=== PATIENT | female | born 1970 | race Caucasian/White ===

== ENCOUNTER → 2017-01-09 | Outpatient (CLI) | payer BC ==
--- NOTE | 2017-01-17 16:49 | MY ---
EXAMINATION: Bilateral digital mammography utilizing CAD. HISTORY: Screening exam. Comparison is made to previous studies dated 05/18/2014. FINDINGS: Bilateral heterogeneously dense breast tissue. Bilateral subglandular saline implants are noted. No suspicious calcifications, masses or architectural distortions. No pathologic appearing lymph nodes, no abnormal skin thickening or nipple inversion. CAD highlighted regions appear normal at this time. IMPRESSION: BI-RADS category I - negative mammogram. Continued screening according to ACR-ACS guidelines ron segundo. THE FALSE-NEGATIVE RATE OF MAMMOGRAM IS APPROXIMATELY 10%. MANAGEMENT OF A PALPABLE ABNORMALITY MUST BE BASED UPON CLINICAL GROUNDS. SENSITIVITY FOR DETECTION OF ABNORMALITIES IN DENSE BREASTS IS LOW. NOTE: A letter will be sent to the patient regarding findings. [facility] -- HERRERA Gonzalez [phone] - FAX [phone]
== END | disposition home or self-care (01) ==
LOC: MW.MAM 13:24
PROVIDERS: ATTEND Obstetrics & Gynecology
DX: Z12.31 Encounter for screening mammogram for malignant neoplasm of breast (principal)
CPT/HCPCS: G0202; G0202-26

== ENCOUNTER 2020-03-28 15:02 | Emergency (ER) | payer BC ==
[2020-03-28] MEDS ORDERED: Sodium Chloride 0.9% 10 ML Syringe FLUSH PRN (15:13)
[2020-03-28] MEDS ORDERED: Sodium Chloride 0.9% 2.5 ML Syringe FLUSH PRN (15:13)
[2020-03-28 15:54] LABS: BLOOD UREA NITROGEN,BUN 16 mg/dL (7.0-18.0); CARBON DIOXIDE,CO2 25.1 mmol/L (21.0-32.0); CHLORIDE,CL 99 mmol/L (98-107); GLUCOSE RANDOM 125 mg/dL (74-106); POTASSIUM,K 3.4 mmol/L (3.5-5.1); SODIUM,NA 135 mmol/L (136-145)
--- NOTE | 2020-03-28 16:05 | CR ---
Chest: 2 views of the chest were obtained. Comparison: No previous chest imaging. Heart size and mediastinum are normal. Lungs are clear with no acute parenchymal change. Bony structures are unremarkable. Impression: 1. Nothing acute is seen on 2 view chest x-ray. Diagnostic code #1 This report was dictated in MDT
--- NOTE | 2020-03-28 16:54 | EDM.PDOC ---
ED HPI GENERAL MEDICAL PROBLEM - General Chief Complaint: Chest Pain Stated Complaint: CHEST PAIN Time Seen by Provider: 03/28/20 15:13 Source of Information: Reports: Patient History Limitations: Reports: No Limitations - History of Present Illness INITIAL COMMENTS - FREE TEXT/NARRATIVE: 50-year-old female past medical history of hypertension, tobacco use presenting with chest pain. 4-day history of intermittent pain to the substernal area of the chest and the left anterior chest wall. No history of prior pain like this. Nothing makes it better or worse. Described as "sharp". Onset was gradual. No self treatment prior to arrival. Chest Pain Score (Numeric/FACES): 4 - Related Data Allergies Allergy/AdvReac Type Severity Reaction Status Date / Time morphine Allergy Rash Verified 03/28/20 15:09 Home Meds: Home Meds . [Unable to Verify Home Med List] 03/28/20 [History] Past Medical History Cardiovascular History: Reports: Hypertension Endocrine/Metabolic History: Reports: Hypothyroidism - Infectious Disease History Infectious Disease History: Reports: Chicken Pox - Past Surgical History GI Surgical History: Reports: Cholecystectomy Social & Family History - Family History Family Medical History: Noncontributory - Tobacco Use Smoking Status *Q: Current Every Day Smoker Tobacco Use Within Last Twelve Months: Cigarettes - Recreational Drug Use Recreational Drug Use: No ED ROS GENERAL - Review of Systems Review Of Systems: See Below Constitutional: Denies: Fever HEENT: Reports: No Symptoms Respiratory: Denies: Shortness of Breath, Cough, Hemoptysis Cardiovascular: Reports: Chest Pain Endocrine: Reports: No Symptoms GI/Abdominal: Denies: Abdominal Pain, Nausea, Vomiting : Denies: Flank Pain Musculoskeletal: Denies: Shoulder Pain, Arm Pain, Back Pain Skin: Denies: Rash Neurological: Denies: Headache, Numbness ED EXAM, GENERAL - Physical Exam Exam: See Below Free Text/Narrative:: Vital signs reviewed. Nursing notes reviewed. Constitutional: Awake, alert, non-distressed. Head: Normocephalic, atraumatic. Eyes: EOMI, conjunctiva normal, no discharge, no scleral icterus. Ears, Nose, Throat: External ears and nose normal, moist oral mucosa. Cardiovascular: 2+ radial pulse, capillary refill less than 2 seconds. RRR no MRG. No lower extremity edema. Pulmonary: normal work of breathing, no accessory muscle use. CTA BL Abdomen/GI: Soft, nontender, nondistended, no guarding or rigidity, no masses. Musculoskeletal: No deformities. Integumentary: Appropriate color for ethnicity, warm, dry, no pallor or jaundice, no rash. Neurologic: Alert, answering questions appropriately, normal speech, no facial droop, moving all extremities well. Psychiatric: Appropriate mood and affect, normal thought process. EKG INTERPRETATION EKG Interpretation Comments: 12-Lead ECG Interpretation Acquired: 3:05 PM Rhythm: Sinus rhythm Rate: 97 bpm Lewis: Normal Intervals: Normal Ectopy: None Ischemic Changes: None apparent RV Strain: No obvious RV strain pattern. ST Segments/T-Waves: No notable changes Interpretation: Unremarkable Course - Vital Signs Text/Narrative:: Patient hemodynamically stable, afebrile, well-appearing, looks nontoxic. Differential diagnosis includes but is not limited to: ACS, pulmonary embolism, aortic dissection, acute systolic heart failure, pneumonia, pneumothorax, pericardial effusion, pleural effusion, pericarditis, endocarditis, esophageal rupture, GERD, drug-induced chest pain, chest wall pain, and many others. I considered a multitude of differential diagnoses for the patient's chest pain, including: Negative troponin with 4 days of chest pain, nonischemic EKG. Heart score of 2, which is low risk. Low suspicion for acute coronary syndrome given these facts. Moderate risk by Wells PE score but not hypoxic or tachycardic, negative d-dimer. Pain does not radiate to the back and the patient is not significantly hypertensive, low suspicion for thoracic aortic dissection. No clinical evidence of congestive heart failure. Chest x-rays show no evidence of pneumothorax or infiltrate or an effusion. No cardiac murmur on auscultation. No fever or history of infectious symptoms. No history of recent vomiting. Given negative work-up and well appearance, stable discharge home with outpatient primary care follow-up. Strict emergency department return precautions were provided, patient indicated understanding. All questions were answered prior to departure. Discharged in good condition. HEART Score for Major Cardiac Events RESULT SUMMARY: 2 points Low Score (0-3 points) Risk of MACE of 0.9-1.7%. INPUTS: History > 0 = Slightly suspicious EKG > 0 = Normal Age > 1 = 45-64 Risk factors > 1 = 1-2 risk factors Initial troponin > 0 = ?normal limit Wells' Criteria for Pulmonary Embolism RESULT SUMMARY: 3.0 points Moderate risk group: 16.2% chance of PE in an ED population. Another study assigned scores ? 4 as PE Unlikely and had a 3% incidence of PE. INPUTS: Clinical signs and symptoms of DVT > 0 = No PE is #1 diagnosis OR equally likely > 3 = Yes Heart rate > 100 > 0 = No Immobilization at least 3 days OR surgery in the previous 4 weeks > 0 = No Previous, objectively diagnosed PE or DVT > 0 = No Hemoptysis > 0 = No Malignancy w/ treatment within 6 months or palliative > 0 = No Last Recorded V/S: Last Vital Signs Temp 36.6 C 03/28/20 15:09 Pulse 92 03/28/20 16:46 Resp 18 03/28/20 16:46 BP 107/75 03/28/20 16:46 Pulse Ox 96 03/28/20 16:46 - Orders/Labs/Meds Orders: Active Orders 24 hr Category Date Time Status Cardiac Monitoring [RC] . DIRECTED Care 03/28/20 15:13 Active Pulse Oximetry [RC] ASDIRECTED Care 03/28/20 15:13 Active Sodium Chloride 0.9% [Saline Flush] Med 03/28/20 15:13 Active 10 ml FLUSH ASDIRECTED PRN Sodium Chloride 0.9% [Saline Flush] Med 03/28/20 15:13 Active 2.5 ml FLUSH ASDIRECTED PRN Saline Lock Insert [OM.PC] Stat Oth 03/28/20 15:13 Ordered Medication Orders Sodium Chloride (Saline Flush) 2.5 ml FLUSH ASDIRECTED PRN PRN Reason: Keep Vein Open Sodium Chloride (Saline Flush) 10 ml FLUSH ASDIRECTED PRN PRN Reason: Keep Vein Open Labs: Laboratory Tests 03/28/20 03/28/20 03/28/20 Range/Units 15:13 15:13 15:13 WBC 14.40 H (4.0-11.0) K/uL RBC 5.02 (4.30-5.90) M/uL Hgb 15.8 (12.0-16.0) g/dL Hct 47.0 H (36.0-46.0) % MCV 93.6 (80.0-98.0) fL MCH 31.5 (27.0-32.0) pg MCHC 33.6 (31.0-37.0) g/dL RDW Std Deviation 49.6 (28.0-62.0) fl RDW Coeff of Stan 15 (11.0-15.0) % Plt Count 354 (150-400) K/uL MPV 10.40 (7.40-12.00) fL Neut % (Auto) 60.6 (48.0-80.0) % Lymph % (Auto) 30.8 (16.0-40.0) % Howell % (Auto) 6.9 (0.0-15.0) % Eos % (Auto) 1.1 (0.0-7.0) % Baso % (Auto) 0.6 (0.0-1.5) % Neut # (Auto) 8.7 H (1.4-5.7) K/uL Lymph # (Auto) 4.4 H (0.6-2.4) K/uL Howell # (Auto) 1.0 H (0.0-0.8) K/uL Eos # (Auto) 0.2 (0.0-0.7) K/uL Baso # (Auto) 0.1 (0.0-0.1) K/uL Nucleated RBC % 0.0 /100WBC Nucleated RBCs # 0 K/uL D-Dimer, Quantitative (0.0-0.50) mg/L FEU Sodium 135 L (136-145) mmol/L Potassium 3.4 L (3.5-5.1) mmol/L Chloride 99 (98-107) mmol/L Carbon Dioxide 25.1 (21.0-32.0) mmol/L BUN 16 (7.0-18.0) mg/dL Creatinine 1.1 H (0.6-1.0) mg/dL Est Cr Clr Drug Dosing 56.64 mL/min Estimated GFR (MDRD) 52.4 ml/min Glucose 125 H (74-106) mg/dL Calcium 9.0 (8.5-10.1) mg/dL Total Bilirubin 0.5 (0.2-1.0) mg/dL AST 14 L (15-37) IU/L ALT 41 (14-63) IU/L Alkaline Phosphatase 114 (46-116) U/L Troponin I < 0.050 (0.000-0.056) ng/mL Total Protein 8.4 H (6.4-8.2) g/dL Albumin 4.0 (3.4-5.0) g/dL Globulin 4.4 H (2.6-4.0) g/dL Albumin/Globulin Ratio 0.9 (0.9-1.6) HCG, Qual NEGATIVE (NEG) 03/28/20 Range/Units 15:13 WBC (4.0-11.0) K/uL RBC (4.30-5.90) M/uL Hgb (12.0-16.0) g/dL Hct (36.0-46.0) % MCV (80.0-98.0) fL MCH (27.0-32.0) pg MCHC (31.0-37.0) g/dL RDW Std Deviation (28.0-62.0) fl RDW Coeff of Stan (11.0-15.0) % Plt Count (150-400) K/uL MPV (7.40-12.00) fL Neut % (Auto) (48.0-80.0) % Lymph % (Auto) (16.0-40.0) % Howell % (Auto) (0.0-15.0) % Eos % (Auto) (0.0-7.0) % Baso % (Auto) (0.0-1.5) % Neut # (Auto) (1.4-5.7) K/uL Lymph # (Auto) (0.6-2.4) K/uL Howell # (Auto) (0.0-0.8) K/uL Eos # (Auto) (0.0-0.7) K/uL Baso # (Auto) (0.0-0.1) K/uL Nucleated RBC % /100WBC Nucleated RBCs # K/uL D-Dimer, Quantitative 0.28 (0.0-0.50) mg/L FEU Sodium (136-145) mmol/L Potassium (3.5-5.1) mmol/L Chloride (98-107) mmol/L Carbon Dioxide (21.0-32.0) mmol/L BUN (7.0-18.0) mg/dL Creatinine (0.6-1.0) mg/dL Est Cr Clr Drug Dosing mL/min Estimated GFR (MDRD) ml/min Glucose (74-106) mg/dL Calcium (8.5-10.1) mg/dL Total Bilirubin (0.2-1.0) mg/dL AST (15-37) IU/L ALT (14-63) IU/L Alkaline Phosphatase (46-116) U/L Troponin I (0.000-0.056) ng/mL Total Protein (6.4-8.2) g/dL Albumin (3.4-5.0) g/dL Globulin (2.6-4.0) g/dL Albumin/Globulin Ratio (0.9-1.6) HCG, Qual (NEG) Meds: Medications Generic Name Dose Route Start Last Admin Trade Name Freq PRN Reason Stop Dose Admin Sodium Chloride 2.5 ml 03/28/20 15:13 Saline Flush FLUSH ASDIRECTED PRN Keep Vein Open Sodium Chloride 10 ml 03/28/20 15:13 Saline Flush FLUSH ASDIRECTED PRN Keep Vein Open Departure - Departure Time of Disposition: 16:52 Disposition: Home, Self-Care 01 Condition: Good Clinical Impression: Atypical chest pain Instructions: Nonspecific Chest Pain, Adult Referrals: Cody Dang MD [Physician] - 1 Week (For follow-up of symptoms.) Forms: ED Department Discharge Additional Instructions: Thank you for choosing the [facility] emergency department in [place] for your medical needs today. It was a pleasure caring for you. You were seen in the emergency department for chest pain. At this point, your blood work, EKG, and x-rays look reassuring. There is no evidence of a blood clot in your lungs or heart attack at this point. I encourage you to follow-up with your primary doctor the next few days for reevaluation. They may refer you to a public health social worker at that point. Continue taking your regularly prescribed medications. You can take [id number] Tylenol as needed for pain. If your chest pain gets worse or if you have trouble breathing, you should come back to the ER immediately. Please return the emergency department immediately if your symptoms worsen or if you feel worse. The following information is given to patients seen in the emergency department who are being discharged. This information is to outline your options for follow-up care. We provide all patients seen in our emergency department with a follow-up referral. The need for follow-up, as well as the timing and circumstances, are variable depending upon the specifics of your emergency department visit. If you don't have a primary care physician on staff, we will provide you with a referral. We always advise you to contact your personal physician following an emergency department visit to inform them of the circumstance of the visit and for follow-up with them and/or the need for any referrals to a consulting specialist. The emergency department will also refer you to a specialist when appropriate. This referral assures that you have the opportunity for follow-up care with a specialist. All of these measure are taken in an effort to provide you with optimal care, which includes your follow-up. Under all circumstances we always encourage you to contact your private physician who remains a resource for coordinating your care. When calling for follow-up care, please make the office aware that this follow-up is from your recent emergency room visit. If for any reason you are refused follow-up, please contact the [facility] Emergency Department at and asked to speak to the emergency department idnorah dubois nurse. If you do not have a primary care physician that is caring for you, you can contact these clinics below to set up an appointment to establish care: [facility] [address] [place] [id number] [facility] [address] [place] [id number] Sepsis Event Note (ED) - Evaluation Sepsis Screening Result: No Definite Risk - Focused Exam Vital Signs: Vital Signs Temp Pulse Resp BP Pulse Ox 03/28/20 16:46 92 18 107/75 96 03/28/20 15:09 36.6 C 99 20 121/89 93 L - My Orders Last 24 Hours: My Active Orders 03/28/20 15:13 Cardiac Monitoring [RC] . DIRECTED Pulse Oximetry [RC] ASDIRECTED Sodium Chloride 0.9% [Saline Flush] 10 ml FLUSH ASDIRECTED PRN Sodium Chloride 0.9% [Saline Flush] 2.5 ml FLUSH ASDIRECTED PRN Saline Lock Insert [OM.PC] Stat - Assessment/Plan Last 24 Hours: My Active Orders 03/28/20 15:13 Cardiac Monitoring [RC] . DIRECTED Pulse Oximetry [RC] ASDIRECTED Sodium Chloride 0.9% [Saline Flush] 10 ml FLUSH ASDIRECTED PRN Sodium Chloride 0.9% [Saline Flush] 2.5 ml FLUSH ASDIRECTED PRN Saline Lock Insert [OM.PC] Stat
== END 2020-03-28 17:05 | disposition home or self-care (01) ==
LOC: MW.ED 15:02
DX: R07.89 Other chest pain (principal); I10 Essential (primary) hypertension; Z88.5 Allergy status to narcotic agent; F17.210 Nicotine dependence, cigarettes, uncomplicated
CPT/HCPCS: 36415; 71046; 71046-26; 80053; 84484; 84703; 85025; 85379; 93005; 99283; 99285-25

== ENCOUNTER 2020-06-28 14:35 | Day surgery (SDC) | payer BC ==
[2020-06-28] MEDS ORDERED: Ertapenem 1 GM in Sodium Chloride 0.9% 50 ML IV ONE ×2 (15:36→16:30)
[2020-06-28] MEDS: Sodium Chloride 0.9% 1,000 ML IV SCH (16:29)
[2020-06-28] MEDS ORDERED: Bupivacaine 0.5% 30 ML SDV ONE (16:40)
[2020-06-28] MEDS ORDERED: Midazolam 1 MG/ML 2 ML SDV ONE (17:58)
[2020-06-28] MEDS ORDERED: Propofol 200 MG/20 ML SDV ONE (17:58)
[2020-06-28] MEDS ORDERED: fentaNYL 250 MCG/5 ML SDV ONE (17:58)
[2020-06-28] MEDS ORDERED: Ondansetron 4 MG/2 ML SDV ONE (17:59)
[2020-06-28] MEDS ORDERED: Ketorolac 30 MG/ML SDV ONE (17:59)
[2020-06-28] MEDS ORDERED: Rocuronium Bromide 50 MG/5 ML Syringe ONE (17:59)
[2020-06-28] MEDS ORDERED: Lidocaine 2% 5 ML SDV ONE (17:59)
[2020-06-28] MEDS ORDERED: Glycopyrrolate 0.2 MG/ML SDV ONE (17:59)
[2020-06-28] MEDS ORDERED: fentaNYL 100 MCG/2 ML SDV IVPUSH PRN (18:09)
[2020-06-28] MEDS ORDERED: Acetaminophen 1,000 MG in Premix Bag 1 BAG IV PRN (18:09)
--- NOTE | 2020-06-28 18:54 | PCM.PREANE ---
Preanesthetic Assessment - Anesthesia/Transfusion/Family Hx Anesthesia History: Prior Anesthesia Without Reaction Family History of Anesthesia Reaction: No - Review of Systems Cardiovascular: Orthopnea - Physical Assessment NPO Status Date: 06/28/20 NPO Status Time: 14:00 Vital Signs: Last Vital Signs Temp 36.2 C 06/28/20 14:47 Pulse 89 06/28/20 17:18 Resp 16 06/28/20 16:50 BP 113/74 06/28/20 17:18 Pulse Ox 97 06/28/20 17:18 Height: 1.68 m Weight: 88.904 kg ASA Class: 2E - Lab Values: Laboratory Last Values SARS-CoV-2 RNA (SIVAKUMAR) NEGATIVE (NEGATIVE) 06/28/20 15:25 - Allergies Allergies/Adverse Reactions: Allergies Allergy/AdvReac Type Severity Reaction Status Date / Time morphine Allergy Rash Verified 06/28/20 14:49 PreAnesthesia Questionnaire Cardiovascular History: Reports: Hypertension Endocrine/Metabolic History: Reports: Diabetes, Type II, Hypothyroidism - Infectious Disease History Infectious Disease History: Reports: Chicken Pox, Measles - Past Surgical History GI Surgical History: Reports: Cholecystectomy - SUBSTANCE USE Tobacco Use Status *Q: Current Every Day Tobacco User Tobacco Use Within Last Twelve Months: Cigarettes Recreational Drug Use History: No - HOME MEDS Home Medications: Home Meds Non-Formulary Medication [NF Drug] 0 each PO WEEKLY 03/28/20 [History] Cetirizine [ZyrTEC] 10 mg PO DAILY 06/28/20 [History] Levothyroxine [Synthroid] 100 mcg PO DAILY 06/28/20 [History] Triamterene/Hydrochlorothiazid [Triamterene-HCTZ 75-50 MG] 1 tab PO DAILY 06/28/20 [History] lisinopriL [Lisinopril] 20 mg PO DAILY 06/28/20 [History] - CURRENT (IN HOUSE) MEDS Current Meds: Current Medications Fentanyl (Sublimaze) 50 mcg IVPUSH Q5M PRN PRN Reason: Pain Sodium Chloride (Normal Saline) 1,000 mls @ 125 mls/hr IV ASDIRECTED IAN Last Admin: 06/28/20 16:29 Dose: 125 mls/hr Documented by: Acetaminophen 1,000 mg/ Premix 100 mls @ 400 mls/hr IV Q6H PRN PRN Reason: Pain Discontinued Medications Bupivacaine HCl (Marcaine 0.5%) Confirm Administered Dose 30 ml .ROUTE .STK-MED ONE Stop: 06/28/20 16:41 Fentanyl (Sublimaze) Confirm Administered Dose 250 mcg .ROUTE .STK-MED ONE Stop: 06/28/20 17:59 Glycopyrrolate (Robinul) Confirm Administered Dose 0.8 mg .ROUTE .STK-MED ONE Stop: 06/28/20 18:00 Ertapenem 1 gm/ Sodium (Chloride) 50 mls @ 100 mls/hr IV ONETIME ONE Stop: 06/28/20 16:59 Last Admin: 06/28/20 16:37 Dose: 100 mls/hr Documented by: Ketorolac Tromethamine (Toradol) Confirm Administered Dose 30 mg .ROUTE .STK-MED ONE Stop: 06/28/20 18:00 Lidocaine (Xylocaine-Mpf 2%) Confirm Administered Dose 5 ml .ROUTE .STK-MED ONE Stop: 06/28/20 18:00 Midazolam HCl (Versed 1 Mg/Ml) Confirm Administered Dose 2 mg .ROUTE .STK-MED ONE Stop: 06/28/20 17:59 Ondansetron HCl (Zofran) Confirm Administered Dose 4 mg .ROUTE .STK-MED ONE Stop: 06/28/20 18:00 Propofol (Diprivan 20 Ml) Confirm Administered Dose 200 mg .ROUTE .STK-MED ONE Stop: 06/28/20 17:59 Rocuronium [place] (Rocuronium Norfolk) Confirm Administered Dose 50 mg .ROUTE .STK-MED ONE Stop: 06/28/20 18:00
[2020-06-28] MEDS ORDERED: Octyl 2-Cyanoacrylate 1 Tube ONE (19:26)
[2020-06-28] MEDS ORDERED: HYDROmorphone 2 MG/ML Syringe IVPUSH PRN (19:37)
[2020-06-28] MEDS ORDERED: Ondansetron 4 MG/2 ML SDV IVPUSH PRN (19:37)
--- NOTE | 2020-06-28 19:37 | PCM.OPNOTE ---
- General Post-Op/Procedure Note Date of Surgery/Procedure: 06/28/20 Operative Procedure(s): Laparoscopic appendectomy Findings: acute appendicitis. dictation #[id number] Pre Op Diagnosis: acute appendicitis Post-Op Diagnosis: acute appendicitis Anesthesia Technique: General ET Tube Primary Surgeon: Monty Gregg Pathology: appendix EBL in mLs: 5 Complications: None Condition: Stable
--- NOTE | 2020-06-28 20:29 | PCM48HPAN ---
Post Anesthesia Note - EVALUATION WITHIN 48HRS OF ANESTHETIC Vital Signs in Normal Range: Yes Patient Participated in Evaluation: Yes Respiratory Function Stable: Yes Airway Patent: Yes Cardiovascular Function Stable: Yes Hydration Status Stable: Yes Pain Control Satisfactory: Yes Nausea and Vomiting Control Satisfactory: Yes Mental Status Recovered: Yes Vital Signs: Last Vital Signs Temp 37.0 C 06/28/20 19:42 Pulse 81 06/28/20 20:14 Resp 14 06/28/20 20:14 BP 124/86 06/28/20 20:14 Pulse Ox 96 06/28/20 20:17
[2020-06-28] MEDS: Acetaminophen/HYDROcodone 325-5 MG Tab PO PRN (22:29)
[2020-06-29] MEDS: Sodium Chloride 0.9% 1,000 ML IV SCH ×2 (03:54→12:53)
[2020-06-29] MEDS: Acetaminophen/HYDROcodone 325-5 MG Tab PO PRN (04:03)
[2020-06-29] MEDS ORDERED: Sodium Chloride 0.9% 1,000 ML IV ONE (06:20)
[2020-06-29] MEDS ORDERED: Levothyroxine 100 MCG Tab PO SCH (07:00)
--- NOTE | 2020-06-29 07:05 | CONS ---
DATE OF CONSULTATION: 06/28/2020 DATE OF : 1970 PRIMARY CARE PHYSICIAN: Cody Dang M.D. CONSULTING PHYSICIAN: Dr. Cody Dang. HISTORY OF PRESENT ILLNESS: The patient is a pleasant 50-year-old female who says about 6 weeks ago, she had some abdominal pain that radiated down to the right lower quadrant. She was going on vacation so she went on vacation. She said the pain went away after a day or so. However, the pain came back now 6 weeks later. She said it started yesterday around her umbilicus and then radiated down to the right lower quadrant. The patient said she thought maybe it was constipation so she took some magnesium citrate and and had a lot of bowel movements, but the pain remained. She also had some subjective low-grade fevers at home and she went to see her primary care provider. The labs showed an elevated white cell count of 15.[address] scan which showed likely acute appendicitis. She came to the ER so that she could get further treatment for her acute appendicitis. PAST MEDICAL PROBLEMS: Significant for: 1. Hypertension. 2. Mik. 3. Seasonal allergies. CURRENT HOME MEDICATIONS: 1. Lisinopril 20 mg p.o. daily. 2. Triamterene/hydrochlorothiazide 75/50 mg tablet daily. 3. Synthroid 100 mcg p.o. daily. 4. Zyrtec 10 mg p.o. daily. ALLERGIES: Morphine causes a rash. PAST SURGICAL HISTORY: 1. Cholecystectomy. 2. Tummy tuck. 3. . 4. Breast augmentation. FAMILY HISTORY: 1. Mother with heart stents and diabetes. 2. Breast cancer runs in the family. SOCIAL HISTORY: The patient does smoke a pack of cigarettes per day. She denies illicit drug use. She does drink alcohol socially. REVIEW OF SYSTEMS: A complete 10+ review of systems was done and was negative except for the HPI. GASTROINTESTINAL: The patient says she often has issues with constipation. The patient also says she has had some nausea, but no emesis. PHYSICAL EXAMINATION: VITAL SIGNS: Temperature is 97.2, pulse is 96, blood pressure is 120/76, saturating 95% on room air. HEENT: Head is normocephalic, atraumatic. LUNGS: Clear to auscultation bilaterally. No rhonchi or wheezing heard. HEART: Regular rate and rhythm. No murmur appreciated. ABDOMEN: Soft, nondistended. Does have well healed incisions from previous surgeries. She is tender in the right lower quadrant at McBurney's point. No rebound tenderness. EXTREMITIES: No edema. NEUROLOGICAL: Grossly no motor or neurologic deficit noted. LABORATORY DATA: White cell count is 15.84, hemoglobin is 15.5, platelet count is 344. Sodium 137, potassium 3.5, chloride 100, bicarb 26.5, BUN is 15, creatinine 0.9, glucose is 106. test is negative. COVID test is negative. IMAGING: I did look at the imaging report and looked at the CT scan myself. It does show inflammation around the appendix. The appendix also appears to be dilated. ASSESSMENT AND PLAN: This is a pleasant 50-year-old female with most likely acute appendicitis. I did go over with the patient on what appendix was. I went over risks, goals, alternatives to laparoscopic appendectomy. Risks include, but not limited to bleeding, abscess formation, infection, hernia formation, need to convert to open, injury to nearby structures, failure of the staple line, or this could be something other than appendicitis. The patient understands and wants to proceed with the surgery. She will be given antibiotics and taken to the OR once one is available. I answered all the patient's questions. She wishes to be full code for procedure. AMIRA FERREIRA /[id number] NIKOLAI
[2020-06-29 07:27] LABS: BLOOD UREA NITROGEN,BUN 12 mg/dL (7.0-18.0); CARBON DIOXIDE,CO2 24.9 mmol/L (21.0-32.0); CHLORIDE,CL 100 mmol/L (98-107); GLUCOSE RANDOM 92 mg/dL (74-106); POTASSIUM,K 3.2 mmol/L (3.5-5.1); SODIUM,NA 135 mmol/L (136-145)
--- NOTE | 2020-06-29 07:40 | OR ---
SURGEON: NENO MENDIOLA MD DATE OF PROCEDURE: 06/28/2020 PREOPERATIVE DIAGNOSIS: Acute appendicitis. POSTOPERATIVE DIAGNOSIS: Acute appendicitis. PROCEDURE PERFORMED: Laparoscopic appendectomy. PRIMARY SURGEON: Neno Mendiola MD. ANESTHESIA: General. ESTIMATED BLOOD LOSS: 5 mL. FINDINGS: Acute appendicitis. COMPLICATIONS: None. REASON FOR PROCEDURE: The patient is a pleasant 50-year-old female. Six weeks ago, she had some right lower quadrant pain that went away. However, now it came back. She was found have an elevated white cell count and a CT scan suggestive of acute appendicitis. I went over with the patient risks, goals, and alternatives to the procedure. Risks include, but not limited to, bleeding, failure of staple line, abscess formation, infection, hernia formation, injury to nearby structures such as bowel or ureter, need to convert to open, and that this could be something other than appendicitis. The patient understands and wished to proceed. PROCEDURE IN DETAIL: The patient was brought to the OR. She was prepped and draped in the usual sterile fashion. SCDs were placed. Burnette catheter was place. The patient received antibiotics. After a time-out was performed, an infraumbilical incision was made. This was carried down to the fascia. The fascia was grasped with a Rachel and slightly elevated, and a Veress needle was placed. Position was confirmed with a syringe drawbacks with no succus or blood and a positive drop test. Now, insufflation was began, and a pneumoperitoneum was established. After the pneumoperitoneum was established, now a 5 mm trocar was placed with a 5 mm camera and placed into the abdominal cavity. The abdomen was inspected. No entry wound was seen. Now, another 5 mm trocar was placed in the in the suprapubic area, and a 12 mm trocar was placed in the left lower abdomen. The patient was placed in a head- down position, and airplaned toward ar. The appendix was identified. The appendix was dilated, did not appear to have any gross perforation, but did have a little bit of exudate around it. The appendix was slightly adhered to the abdominal wall. This was carefully peeled away and. Now, a small window was made in the mesoappendix at the base of the appendix. Now, a blue load stapler was used to transect the appendix at the base of its junction with the cecum. Now, the mesoappendix was taken with Harmonic Scalpel. The appendix was removed into the EndoCatch bag. Now, the operative site was inspected. There was good hemostasis. The staple line was intact. The mesoappendix had good hemostasis. I did some light irrigation and suctioning of the operative field. The area looked good. Now, the 12 mm trocar was removed, and it was closed using a cone device and 0 Vicryl stitch. Now, the pneumoperitoneum was released, and the two 5 mm trocars were removed. All the trocar sites were now injected with Exparel and closed with 4-0 Monocryl and Dermabond. The patient was transferred to recovery room in stable condition. Sponge and needle count were correct. AMIRA / HANNA /[id number]
--- NOTE | 2020-06-29 08:41 | PCM48HPAN ---
Post Anesthesia Note - EVALUATION WITHIN 48HRS OF ANESTHETIC Vital Signs in Normal Range: Yes Patient Participated in Evaluation: Yes Respiratory Function Stable: No (Low saturations spo2 91%) Airway Patent: Yes Cardiovascular Function Stable: No (hypotension) Vital Signs: Last Vital Signs Temp 36.4 C 06/29/20 07:17 Pulse 83 06/29/20 07:17 Resp 14 06/29/20 07:17 BP 87/54 L 06/29/20 07:17 Pulse Ox 91 L 06/29/20 07:17
[2020-06-29] MEDS ORDERED: Lisinopril 10 MG Tab PO SCH (09:00)
[2020-06-29] MEDS: traMADol 50 MG Tab PO PRN ×2 (09:23→13:51)
[2020-06-29] MEDS ORDERED: Lactated Ringers 1,000 ML IV ONE (10:16)
[2020-06-29] MEDS ORDERED: Piperacillin/Tazobactam 3.375 GM in Sodium Chloride 0.9% 50 ML IV SCH (10:30)
--- NOTE | 2020-06-29 10:30 | PCM48HPAN ---
Post Anesthesia Note - EVALUATION WITHIN 48HRS OF ANESTHETIC Vital Signs in Normal Range: Yes Patient Participated in Evaluation: Yes Respiratory Function Stable: Yes Airway Patent: Yes Cardiovascular Function Stable: Yes Hydration Status Stable: Yes Pain Control Satisfactory: Yes Nausea and Vomiting Control Satisfactory: Yes Mental Status Recovered: Yes Vital Signs: Last Vital Signs Temp 36.4 C 06/29/20 07:17 Pulse 76 06/29/20 08:51 Resp 14 06/29/20 07:17 BP 89/64 L 06/29/20 08:51 Pulse Ox 91 L 06/29/20 07:17
--- NOTE | 2020-06-29 10:46 | PCM.POSTAN ---
POST ANESTHESIA ASSESSMENT - MENTAL STATUS Mental Status: Alert - VITAL SIGNS Vital Signs: Last Vital Signs Temp 36.4 C 06/29/20 07:17 Pulse 76 06/29/20 08:51 Resp 14 06/29/20 07:17 BP 89/64 L 06/29/20 08:51 Pulse Ox 91 L 06/29/20 07:17 - RESPIRATORY Respiratory Status: Respiratory Rate WNL - GASTROINTESTINAL GI Status: No Symptoms - POST OP HYDRATION Hydration Status: Adequate & Stable
[2020-06-29] MEDS ORDERED: Nicotine 14 MG/24 Hr Patch TRDERM SCH (11:15)
[2020-06-29] MEDS ORDERED: Potassium Chloride 20 MEQ Tab.ER PO ONE (12:07)
--- NOTE | 2020-06-29 13:20 | PCM.CONS ---
H&P History of Present Illness - General Date of Service: 06/29/20 Admit Problem/Dx: acute appendicitis - History of Present Illness Initial Comments - Free Text/Narative: Patient is a 50 y/o F with PMH of HTN., Mik thyroiditis, hypothyroidism seasonal allergies who was admitted for acute appendictis. Patient states she developed pain in her right lower abdomen 6 weeks back which later resolved on its own untill yesterday when the pain recurred again, this time it was more severe, she thought she was constipated so took some laxatives, which made her pass stools but her pain didnt imprve, she also developed fever at home. Her pcp ordered lab work and CT scan A/P. Lab work was significant for leucocytosis and Imaging showed appendicitis. Patient was sent to ER and underwent appendectomy on 06/28. Post op, patient was hypotensive so she was admitted for post op observation. I was consulted for hypotension. Patient was resting comfortably, no acute abdominal pain, no fever. Denied N/V/D, wanted to smoke and is keen to leave. right lower abdomen Pain Score (Numeric/FACES): 5 - Related Data Allergies/Adverse Reactions: Allergies Allergy/AdvReac Type Severity Reaction Status Date / Time morphine Allergy Rash Verified 06/28/20 14:49 Home Medications: Home Meds Non-Formulary Medication [NF Drug] 0 each PO WEEKLY 03/28/20 [History] Cetirizine [ZyrTEC] 10 mg PO DAILY 06/28/20 [History] Levothyroxine [Synthroid] 100 mcg PO DAILY 06/28/20 [History] Triamterene/Hydrochlorothiazid [Triamterene-HCTZ 75-50 MG] 1 tab PO DAILY 06/28/20 [History] lisinopriL [Lisinopril] 20 mg PO DAILY 06/28/20 [History] Past Medical History Cardiovascular History: Reports: Hypertension Endocrine/Metabolic History: Reports: Diabetes, Type II, Hypothyroidism - Infectious Disease History Infectious Disease History: Reports: Chicken Pox, Measles - Past Surgical History GI Surgical History: Reports: Cholecystectomy Social & Family History - Family History Family Medical History: Noncontributory - Tobacco Use Tobacco Use Status *Q: Current Every Day Tobacco User Years of Tobacco use: 38 Packs/Tins Daily: 1 - Recreational Drug Use Recreational Drug Use: No H&P Review of Systems - Review of Systems: Review Of Systems: See Below General: Denies: Fever, Chills, Malaise, Weakness Pulmonary: Denies: Shortness of Breath, Wheezing Cardiovascular: Denies: Chest Pain, Palpitations, Dyspnea on Exertion Gastrointestinal: Denies: Abdominal Pain, Anorexia, Black Stool, Bloody Stool Genitourinary: Denies: Dysuria, Frequency, Burning, Pain Musculoskeletal: Denies: Neck Pain, Shoulder Pain, Arm Pain Skin: Denies: Cyanosis, Jaundice, Mottled Psychiatric: Reports: Cravings (smoking). Denies: Confusion, Depression, Mood Lability Exam - Exam Exam: See Below - Vital Signs Vital Signs: Last Vital Signs Temp 36.7 C 06/29/20 11:21 Pulse 91 06/29/20 11:54 Resp 14 06/29/20 11:21 BP 104/68 06/29/20 11:54 Pulse Ox 95 06/29/20 11:21 Weight: 88.904 kg - Exam Quality Assessment: No: Supplemental Oxygen, Central Line/PICC, Urinary Catheter General: Alert, Oriented Neck: Supple, Trachea Midline Lungs: Clear to Auscultation, Normal Respiratory Effort GI/Abdominal Exam: Normal Bowel Sounds, Soft, Non-Tender, Other. No: Rigid, Rebound, Hepatomegaly, Splenomegaly Extremities: Normal Inspection, Normal Range of Motion Skin: Warm, Dry, Incision (clean and dry) Neuro Extensive - Mental Status: Alert, Oriented x3, Normal Mood/Affect - Patient Data Lab Results Last 24 hrs: Laboratory Results - last 24 hr 06/28/20 06/29/20 06/29/20 Range/Units 15:25 06:40 06:40 WBC 12.61 H (4.0-11.0) K/uL RBC 4.31 (4.30-5.90) M/uL Hgb 13.2 (12.0-16.0) g/dL Hct 41.1 (36.0-46.0) % MCV 95.4 (80.0-98.0) fL MCH 30.6 (27.0-32.0) pg MCHC 32.1 (31.0-37.0) g/dL RDW Std Deviation 48.5 (28.0-62.0) fl RDW Coeff of Stan 14 (11.0-15.0) % Plt Count 312 (150-400) K/uL MPV 10.00 (7.40-12.00) fL Neut % (Auto) 61.9 (48.0-80.0) % Lymph % (Auto) 28.7 (16.0-40.0) % Harper % (Auto) 7.8 (0.0-15.0) % Eos % (Auto) 1.0 (0.0-7.0) % Baso % (Auto) 0.6 (0.0-1.5) % Neut # (Auto) 7.8 H (1.4-5.7) K/uL Lymph # (Auto) 3.6 H (0.6-2.4) K/uL Harper # (Auto) 1.0 H (0.0-0.8) K/uL Eos # (Auto) 0.1 (0.0-0.7) K/uL Baso # (Auto) 0.1 (0.0-0.1) K/uL Nucleated RBC % 0.0 /100WBC Nucleated RBCs # 0 K/uL Sodium 135 L (136-145) mmol/L Potassium 3.2 L (3.5-5.1) mmol/L Chloride 100 (98-107) mmol/L Carbon Dioxide 24.9 (21.0-32.0) mmol/L BUN 12 (7.0-18.0) mg/dL Creatinine 0.9 (0.6-1.0) mg/dL Est Cr Clr Drug Dosing 69.23 mL/min Estimated GFR (MDRD) > 60.0 ml/min Glucose 92 (74-106) mg/dL Calcium 8.0 L (8.5-10.1) mg/dL SARS-CoV-2 RNA (SIVAKUMAR) NEGATIVE (NEGATIVE) Result Diagrams: 06/29/20 06:40 06/29/20 06:40 Sepsis Event Note - Evaluation Sepsis Screening Result: No Definite Risk - Focused Exam Vital Signs: Vital Signs Temp Pulse Resp BP BP BP Pulse Ox 06/29/20 11:54 91 104/68 06/29/20 11:21 36.7 C 88 14 125/84 95 06/29/20 08:51 76 89/64 L 06/29/20 08:47 89/64 L 06/29/20 07:17 36.4 C 83 14 87/54 L 91 L 06/29/20 06:12 85/51 L 06/29/20 04:00 37.1 C 84 16 74/52 L 93 L Consult PN Assessment/Plan POD#: 1 Procedures: Procedures ASSAY OF FREE THYROXINE (10/11/16) ASSAY OF TROPONIN QUANT (03/28/20) ASSAY THYROID STIM HORMONE (08/28/19) CHORIONIC GONADOTROPIN ASSAY (03/28/20) COMPLETE CBC AUTOMATED (10/29/18) COMPLETE CBC W/AUTO DIFF WBC (03/28/20) COMPREHEN METABOLIC PANEL (03/28/20) ELECTROCARDIOGRAM TRACING (03/28/20) EMERGENCY DEPT VISIT (03/28/20) FIBRIN DEGRADATION QUANT (03/28/20) GLYCOSYLATED HEMOGLOBIN TEST (11/26/19) INFLUENZA ASSAY W/OPTIC (10/20/19) LIPID PANEL (02/11/18) METABOLIC PANEL TOTAL CA (10/29/18) ROUTINE VENIPUNCTURE (03/28/20) X-RAY EXAM CHEST 2 VIEWS (03/28/20) (1) Hypotension after procedure SNOMED Code(s): 09413177081519891 Code(s): I95.81 - POSTPROCEDURAL HYPOTENSION Current Visit: Yes (2) Hypertension SNOMED Code(s): 80280356 Code(s): I10 - ESSENTIAL (PRIMARY) HYPERTENSION Current Visit: Yes (3) H/O Mik thyroiditis SNOMED Code(s): 805520608 Code(s): Z86.39 - PERSONAL HISTORY OF ENDO, NUTRITIONAL AND METABOLIC DISEASE Current Visit: Yes (4) Hypothyroid SNOMED Code(s): 98084431 Code(s): E03.9 - HYPOTHYROIDISM, UNSPECIFIED Current Visit: Yes (5) Hypokalemia SNOMED Code(s): 19698044 Code(s): E87.6 - HYPOKALEMIA Current Visit: Yes Problem List Initiated/Reviewed/Updated: Yes Plan: 50 y/o F admitted for Acute appendicitis s/p appendectomy , POD 1, hypotensive post op WBC count has improved, although still high start IV fluids, administer 1L LR Administer Zosyn obtain blood cultures Recheck BP Q2H d/c Dilaudid Hypokalemia, will replete PO potassium I doubt patient is in sepsis, given leucocytosis has improved, no fever, no SIRS Hypotension likely due to the anaesthesia and IV Dilaudid Continue to monitor till resolution of hypotension Patient is keen to go home today, states absolutely cannot stay overnight for monitoring If BP is better and no SIRS criteria, could dc home with instructions to return to ER if she has fever, worsening pain, low BP. Requesting Provider: Dr Gregg Date Consult Requested: 06/29/20 Reason for Consult: Hypotension Patient History Reviewed: Yes Admission H&P Reviewed: Yes
--- NOTE | 2020-06-30 11:20 | DISCH ---
DATE OF DISCHARGE: 06/29/2020 PRIMARY CARE PHYSICIAN: Cody Dang M.D. PRIMARY DISCHARGE DIAGNOSES: 1. Acute appendicitis. 2. Hypertension. SECONDARY DIAGNOSES: 1. Hypokalemia. 2. Hypothyroidism. 3. Hypertension. REASON FOR ADMISSION: The patient is a pleasant, 50-year-old female who has had abdominal pain for the last couple of days. She did see her primary care provider, Dr. Dang, who got labs and a CT, which showed likely appendicitis. He then called myself, I directed to the ER, where she was seen and prepared for the OR. The patient underwent laparoscopic appendectomy and the appendix did not appear perforated. The patient was admitted for postoperative care. HOSPITAL COURSE: The patient was admitted to the floor. She was noted to have some hypotension. Medicine was consulted. The hypotension was likely just postoperative effect of anesthesia. At time of discharge, the patient's blood pressure had gotten up, it was 167. The patient felt good. Denied any lightheadedness. She says she does check her blood pressure regularly at home. The patient is tolerating her diet, passing gas, and feels good and wants to go home. Her pain is well controlled with tramadol. DISCHARGE MEDICATIONS: 1. Synthroid 100 mcg p.o. daily. 2. Tramadol 50 mg p.o. q.4 hours p.r.n. pain. 3. Zyrtec 10 mg p.o. daily. Her hypertension medications have been held. DISCHARGE EXAMINATION: GENERAL: The patient is comfortable, alert, and oriented. VITAL SIGNS: Temperature is 98.4, pulse is 84, blood pressure is 167, and satting 93% on room air. ABDOMEN: Soft and nondistended. Some minimal tenderness. Inspected after procedure, incisions are all clean, dry, and intact with Dermabond in place. LUNGS: Clear to auscultation. HEART: Regular rate and rhythm. No murmur appreciated. CONSULTS: Medicine was consulted. They felt it was likely post-anesthetic hypotension. We will hold blood pressure medication. FOLLOWUP: The patient will follow up with her primary care provider. The patient will come back if she has any fevers, chills, nausea, or vomiting. DISCHARGE INSTRUCTIONS: The patient is discharged home. She may take a shower. She should not drive while she is on pain medicine. She is to come back if she has any fevers, chills, nausea, vomiting, any changes in her incisions or drainage from her incisions. AMIRA / HANNA /[id number]
== END 2020-06-29 14:55 | disposition home or self-care (01) ==
LOC: MW.ED 14:35 → MW.SDS 14:45 → MW.MS 19:01 → MW.SDS 06-29 14:55
PROVIDERS: ATTEND Surgery
DX: K35.80 Unspecified acute appendicitis (principal); I10 Essential (primary) hypertension; E87.6 Hypokalemia; E03.9 Hypothyroidism, unspecified; E11.9 Type 2 diabetes mellitus without complications; F17.210 Nicotine dependence, cigarettes, uncomplicated; I95.81 Postprocedural hypotension; Z86.39 Personal history of other endocrine, nutritional and metabolic disease; Z01.812 Encounter for preprocedural laboratory examination; Z20.828 Contact with and (suspected) exposure to other viral communicable diseases; Z79.899 Other long term (current) drug therapy; Z79.890 Hormone replacement therapy; Z88.5 Allergy status to narcotic agent; Z90.49 Acquired absence of other specified parts of digestive tract
CPT/HCPCS: 36415; 44970; 80048; 85025; 87040; 87635; 88304; A9270; C1776; J1335; J1885; J2001; J2250; J2543; J2704; J3010; J3490; J7030; J7050; J2405; U0002

== ENCOUNTER 2021-09-23 19:07 | Emergency (ER) | payer BC | END 2021-09-23 21:41 | disposition home or self-care (01) | LOC: MW.ED 19:07 | DX: S90.02XA Contusion of left ankle, initial encounter (principal); E11.9 Type 2 diabetes mellitus without complications; E03.9 Hypothyroidism, unspecified; I10 Essential (primary) hypertension; Z88.5 Allergy status to narcotic agent; Z79.899 Other long term (current) drug therapy; W11.XXXA Fall on and from ladder, initial encounter | CPT/HCPCS: 73610-26-LT; 73610-LT; 73630-26-LT; 73630-LT; 99283-25 ==

== ENCOUNTER 2022-12-11 06:28 | Day surgery (SDC) | payer BC ==
[~2022-12-11 06:28] MED LIST: Lactated Ringers 1,000 ML IV SCH; Sodium Chloride 0.9% 10 ML Syringe FLUSH PRN; Sodium Chloride 0.9% 2.5 ML Syringe FLUSH PRN; Sodium Chloride 0.9% 20 ML SDV IV PRN
[2022-12-11] MEDS ORDERED: Propofol 200 MG/20 ML SDV ONE ×2 (07:24→08:01)
== END 2022-12-11 08:52 | disposition home or self-care (01) ==
LOC: MW.SDS 06:28
PROVIDERS: ATTEND Surgery
DX: D12.2 Benign neoplasm of ascending colon (principal); K62.1 Rectal polyp; K57.30 Diverticulosis of large intestine without perforation or abscess without bleeding; K64.3 Fourth degree hemorrhoids; I10 Essential (primary) hypertension; E03.9 Hypothyroidism, unspecified; F17.210 Nicotine dependence, cigarettes, uncomplicated; Z88.5 Allergy status to narcotic agent; Z88.8 Allergy status to other drugs, medicaments and biological substances; Z79.890 Hormone replacement therapy; Z79.899 Other long term (current) drug therapy; Z90.49 Acquired absence of other specified parts of digestive tract
CPT/HCPCS: 45380; 45385; J2704; J7120; 00811